=== PATIENT | male | born 1970 | race Caucasian/White ===

== ENCOUNTER 2018-04-12 04:37 | Emergency (ER) | payer OTHER ==
[2018-04-12] MEDS: LORAZEPAM 1 MG TAB PO (04:57)
== END 2018-04-12 06:00 | disposition home or self-care (01) ==
LOC: FTE 04:37
DX: F41.9 Anxiety disorder, unspecified (principal); I10 Essential (primary) hypertension; E11.9 Type 2 diabetes mellitus without complications; Z79.84 Long term (current) use of oral hypoglycemic drugs
CPT/HCPCS: 99283; Z7610

== ENCOUNTER 2018-05-05 22:34 | Emergency (ER) | payer OTHER ==
[2018-05-06] MEDS: LEVALBUTEROL (NEB) 1.25 MG/0.5 ML AMP HHN (01:04)
== END 2018-05-06 02:10 | disposition home or self-care (01) ==
LOC: FTE 22:34
DX: J40 Bronchitis, not specified as acute or chronic (principal); J30.9 Allergic rhinitis, unspecified; I10 Essential (primary) hypertension; E11.9 Type 2 diabetes mellitus without complications; Z79.84 Long term (current) use of oral hypoglycemic drugs
CPT/HCPCS: 71046; 94664; 99283-25

== ENCOUNTER 2018-07-01 14:32 | Emergency (ER) | payer SELFPAY, OTHER | END 2018-07-01 19:09 | disposition left against medical advice (07) | LOC: FTE 14:32 | DX: Z53.21 Procedure and treatment not carried out due to patient leaving prior to being seen by health care provider (principal) ==